=== PATIENT | female | born 1970 | race Caucasian/White ===

== ENCOUNTER → 2018-05-22 | Outpatient (CLI) | payer OTHER ==
[~2018-05-22] MED LIST: AMIT25TA PO; ASPI-496 PO; FAMC250T PO; GABA-826 PO; GABA100C PO; LISI-167 PO; NAPR250T; OMEP20TA62 PO; OMEP40CA6 PO; ONDA4TAB10 PO; PROP80CA3 PO; SUCR1TAB PO; SUMA25TA3; TRAM50TA2 PO; flexeril PO
== END | disposition home or self-care (01) ==
LOC: CFH 09:22
PROVIDERS: ATTEND Physician Assistant
DX: M19.072 Primary osteoarthritis, left ankle and foot (principal)